=== PATIENT | female | born 1955 | race Caucasian/White ===

== ENCOUNTER → 2017-12-05 | Outpatient (CLI) | payer OTHER ==
[~2017-12-05] MED LIST: ACYC5TO15G; ASPI81CH PO; ASPI81EC PO; ATOR40TA PO; Adipex-P37.5 MG PO; CELE200; CITA20 PO; DULO60 PO; ESTMET; FISH1000 PO; FLUO10; GABA300 PO; GABA600 PO; HYDACE10B PO; HYDACE5; HYDACE5 PO; HYDMOR2 PO; LEVOXYL PO; LEVSOD100 PO; LEVSOD88 PO; MORP15ER PO; MORP30ER PO; MULVITMINE PO; NICO14TP TOP; OMEP10ER; OMEP20ER PO; OXYC20ER; SIMV5 PO; VARE1 PO
== END | disposition home or self-care (01) ==
LOC: LAB EV 17:00 → LAB SHORT 17:00
DX: G89.4 Chronic pain syndrome (principal); Z79.899 Other long term (current) drug therapy
CPT/HCPCS: G0480

== ENCOUNTER 2019-03-24 07:35 | Day surgery (SDC) | payer OTHER ==
[~2019-03-24] VITALS: Ht 175.3 cm; Wt 96.4 kg
[~2019-03-24 07:35] MED LIST changes: +EUTHYROX88 MCG PO; +Norco 10-325 T1 EACH PO; +Omeprazole20 M1 PO
--- NOTE | 2019-03-24 08:06 | NUR ---
History, Chart, Medications and Allergies reviewed before start of procedure. Patient confirms NPO status and agrees with scheduled surgery. Patient States Post-Procedure ride home has been arranged with , [place].
--- NOTE | 2019-03-24 08:35 | NUR ---
03/24/19 0835 Lorri Mendoza History, Chart, Medications and Allergies reviewed before start of procedure. PATIENT CONFIRMS NPO STATUS AND AGREES WITH SCHEDULED PROCEDURE. MONITOR INTACT WITH CONTINUOUS PULSE OXIMETRY AND INTERMITTENT BP. O2 VIA N/C INTACT THROUGHOUT SEDATION/PROCEDURE. 3-LEAD EKG REVIEWED WITH PHYSICIAN PRIOR TO START OF PROCEDURE. PT MODERATED SEDATION DUE TO SLEEP APNEA.
--- NOTE | 2019-03-24 09:47 | NUR ---
Discharge instructions reviewed with patient. Patient verbalizes understanding. Copy given to patient to take home. Patient up to Ambulate independently. Gait steady. Discharged via wheelchair to private car for ride home.
== END 2019-03-24 22:41 | disposition home or self-care (01) ==
LOC: ORSCMMR 07:35 → ORD 09:00 → ORSCMMR 09:00
PROVIDERS: Internal Medicine Gastroenterology
PROC: 0DB68ZX Excision of Stomach, Via Natural or Artificial Opening Endoscopic, Diagnostic (ICD-10-PCS; principal; 2019-03-24 09:00)
PROC: 0DB48ZX Excision of Esophagogastric Junction, Via Natural or Artificial Opening Endoscopic, Diagnostic (ICD-10-PCS; principal; 2019-03-24 09:00)
PROC: 0DB98ZX Excision of Duodenum, Via Natural or Artificial Opening Endoscopic, Diagnostic (ICD-10-PCS; principal; 2019-03-24 09:00)
DX: K21.9 Gastro-esophageal reflux disease without esophagitis (principal); L85.9 Epidermal thickening, unspecified; K92.1 Melena; R11.0 Nausea; K30 Functional dyspepsia; E03.9 Hypothyroidism, unspecified; M79.7 Fibromyalgia; E78.00 Pure hypercholesterolemia, unspecified; G47.30 Sleep apnea, unspecified; F17.210 Nicotine dependence, cigarettes, uncomplicated; Z79.899 Other long term (current) drug therapy
CPT/HCPCS: 88305; 88312; 88342; J2250; J3010; J7120

== ENCOUNTER 2021-12-27 23:11 | Emergency (ER) | payer OTHER ==
[~2021-12-27] VITALS: Ht 175.3 cm; Wt 65.8 kg
[2021-12-28] MEDS ORDERED: Prednisone20 MG PO (00:23)
[2021-12-28 00:29] LABS: BASOPHILS ABSOLUTE AUTO 0.01 K/mm3 (0.00-0.23); BASOPHILS PERCENT AUTO 0 % (0-2); EOSINOPHILS ABSOLUTE AUTO 0.16 K/mm3 (0.00-0.68); EOSINOPHILS PERCENT AUTO 3 % (0-6); Hematocrit 39.7 % (33.0-51.0); Hemoglobin 13.5 g/dL (11.5-16.0); IMMATURE GRAN ABSOLUTE AUTO 0.02 K/mm3 (0.00-0.10); IMMATURE GRAN PERCENT AUTO 0 % (0-1); LYMPHOCYTES ABSOLUTE AUTO 2.93 K/mm3 (0.84-5.20); LYMPHOCYTES PERCENT AUTO 46 % (21-46); MONOCYTES ABSOLUTE AUTO 0.52 K/mm3 (0.16-1.47); MONOCYTES PERCENT AUTO 8 % (4-13); Mean Corpuscular HGB 31.7 pg (26.0-34.0); Mean Corpuscular Volume 93 fL (80-100); Mean Platelet Volume 10.4 fL (9.1-12.4); NEUTROPHILS PERCENT AUTO 43 % (41-73); Platelet Count 180 K/mm3 (150-400); RDW Coefficient Variation 13.8 % (11.7-14.2); RDW Standard Deviation 47.9 fL (35.1-46.3); Red Blood Cell Count 4.26 M/mm3 (3.80-5.20); White Blood Cell Count 6.34 K/mm3 (4.00-11.30)
[2021-12-28 02:36] LABS: Bun/Creatinine Ratio 16.2 (12.0-20.0); Calcium, Blood 8.7 mg/dL (8.5-10.1); Creatinine, Blood 0.74 mg/dL (0.40-1.00); Potassium, Blood 3.6 mmol/L (3.5-5.5)
== END 2021-12-28 01:50 | disposition home or self-care (01) ==
LOC: ER 23:11
PROVIDERS: Emergency Medicine
DX: M79.604 Pain in right leg (principal); J44.9 Chronic obstructive pulmonary disease, unspecified; K21.9 Gastro-esophageal reflux disease without esophagitis; E03.9 Hypothyroidism, unspecified; Z91.030 Bee allergy status
CPT/HCPCS: 36415; 80048; 82550; 85025; 96374; 96375; 99284-25; J1170; J2930

== ENCOUNTER 2022-03-30 08:35 | Day surgery (SDC) | payer OTHER ==
[~2022-03-30 08:35] MED LIST changes: +MORPHINE PO; +NORCO PO; +Prednisone20 MG PO
== END 2022-03-30 22:43 | disposition home or self-care (01) ==
LOC: ORSCMMR 08:35 → ORD 10:15 → ORSCMMR 10:15
DX: Z86.010 Personal history of colon polyps (principal); Z53.9 Procedure and treatment not carried out, unspecified reason

== ENCOUNTER 2022-08-11 10:39 | Emergency (ER) | payer OTHER ==
[~2022-08-11] VITALS: Ht 170.2 cm; Wt 68.0 kg
[2022-08-11 11:23] LABS: BASOPHILS ABSOLUTE AUTO 0.02 K/mm3 (0.00-0.23); BASOPHILS PERCENT AUTO 0 % (0-2); EOSINOPHILS ABSOLUTE AUTO 0.03 K/mm3 (0.00-0.68); EOSINOPHILS PERCENT AUTO 1 % (0-6); Hematocrit 40.6 % (33.0-51.0); Hemoglobin 14.4 g/dL (11.5-16.0); IMMATURE GRAN ABSOLUTE AUTO 0.01 K/mm3 (0.00-0.10); IMMATURE GRAN PERCENT AUTO 0 % (0-1); LYMPHOCYTES PERCENT AUTO 37 % (21-46); MONOCYTES ABSOLUTE AUTO 0.29 K/mm3 (0.16-1.47); MONOCYTES PERCENT AUTO 5 % (4-13); Mean Corpuscular HGB 32.1 pg (26.0-34.0); Mean Corpuscular HGB Conc 35.5 g/dL (31.5-36.5); Mean Corpuscular Volume 91 fL (80-100); Mean Platelet Volume 10.2 fL (9.1-12.4); NEUTROPHILS ABSOLUTE AUTO 3.39 K/mm3 (1.96-9.15); NEUTROPHILS PERCENT AUTO 57 % (41-73); Platelet Count 182 K/mm3 (150-400); RDW Coefficient Variation 13.4 % (11.7-14.2); RDW Standard Deviation 44.5 fL (35.1-46.3); Red Blood Cell Count 4.48 M/mm3 (3.80-5.20); White Blood Cell Count 5.94 K/mm3 (4.00-11.30)
[2022-08-11 11:42] LABS: Albumin, Blood 3.5 g/dL (3.4-5.0); Albumin/Globulin Ratio 1.2 (0.8-1.8); Bilirubin, Total 0.3 mg/dL (0.1-1.0); Bun/Creatinine Ratio 17.9 (12.0-20.0); Calcium, Blood 9.1 mg/dL (8.5-10.1); Creatinine, Blood 0.5 mg/dL (0.40-1.00); Potassium, Blood 3.7 mmol/L (3.5-5.5); Total Protein, Blood 6.5 g/dL (6.4-8.2)
[2022-08-11 12:59] LABS: Source, Urine Clean Catch
[2022-08-11 13:04] LABS: Appearance, Urine Clear (Clear); Bilirubin, Urine Neg (Neg); Blood, Urine Neg (Neg); Color, Urine Yellow (P-Yellow); Glucose Qualitative, Urine Neg (Neg); Ketones, Urine Neg (Neg); Leukocyte Esterase, Urine Neg (Neg); Nitrite, Urine Neg (Neg); Protein, Urine Neg (Neg); Urobilinogen, Urine NORM (Normal); pH, Urine 6.5 (5.0-8.0)
[2022-08-11] MEDS ORDERED: PROBIOTIC1 EA13 PO (13:39)
[2022-08-11] MEDS ORDERED: AMOCLA875 PO (13:39)
== END 2022-08-11 13:59 | disposition home or self-care (01) ==
LOC: ER 10:39
PROVIDERS: Emergency Medicine
DX: K52.9 Noninfective gastroenteritis and colitis, unspecified (principal); J44.9 Chronic obstructive pulmonary disease, unspecified; G47.33 Obstructive sleep apnea (adult) (pediatric); F17.210 Nicotine dependence, cigarettes, uncomplicated; Z91.038 Other insect allergy status; Z79.899 Other long term (current) drug therapy; Z79.82 Long term (current) use of aspirin
CPT/HCPCS: 36415; 71045; 74177; 80053; 81003; 83690; 84484; 85025; 93005; 93010; Q9967

== ENCOUNTER 2023-01-02 18:01 | Emergency (ER) | payer OTHER ==
[~2023-01-02] VITALS: Ht 175.3 cm; Wt 63.5 kg
[~2023-01-02 18:01] MED LIST changes: +AMOCLA875 PO; +PROBIOTIC1 EA13 PO
[2023-01-02 19:04] LABS: BASOPHILS ABSOLUTE AUTO 0.02 K/mm3 (0.00-0.23); BASOPHILS PERCENT AUTO 0 % (0-2); EOSINOPHILS ABSOLUTE AUTO 0.06 K/mm3 (0.00-0.68); EOSINOPHILS PERCENT AUTO 1 % (0-6); Hematocrit 42.6 % (33.0-51.0); Hemoglobin 14.6 g/dL (11.5-16.0); IMMATURE GRAN ABSOLUTE AUTO 0.01 K/mm3 (0.00-0.10); IMMATURE GRAN PERCENT AUTO 0 % (0-1); LYMPHOCYTES ABSOLUTE AUTO 3.41 K/mm3 (0.84-5.20); LYMPHOCYTES PERCENT AUTO 49 % (21-46); MONOCYTES ABSOLUTE AUTO 0.34 K/mm3 (0.16-1.47); MONOCYTES PERCENT AUTO 5 % (4-13); Mean Corpuscular HGB 31.8 pg (26.0-34.0); Mean Corpuscular HGB Conc 34.3 g/dL (31.5-36.5); Mean Corpuscular Volume 93 fL (80-100); Mean Platelet Volume 10.1 fL (9.1-12.4); NEUTROPHILS ABSOLUTE AUTO 3.18 K/mm3 (1.96-9.15); NEUTROPHILS PERCENT AUTO 45 % (41-73); Platelet Count 186 K/mm3 (150-400); RDW Coefficient Variation 13.2 % (11.7-14.2); RDW Standard Deviation 45.3 fL (35.1-46.3); Red Blood Cell Count 4.59 M/mm3 (3.80-5.20); White Blood Cell Count 7.02 K/mm3 (4.00-11.30)
[2023-01-02 19:26] LABS: Albumin, Blood 3.4 g/dL (3.4-5.0); Bilirubin, Total 0.3 mg/dL (0.1-1.0); Bun/Creatinine Ratio 20.3 (12.0-20.0); Calcium, Blood 9.2 mg/dL (8.5-10.1); Creatinine, Blood 0.69 mg/dL (0.40-1.00); Globulin, Blood 3.4 g/dL (2.2-4.0); Potassium, Blood 3.8 mmol/L (3.5-5.5); Total Protein, Blood 6.8 g/dL (6.4-8.2)
[2023-01-02 20:39] VITALS: BP 125/75
[2023-01-02] MEDS ORDERED: OMEP20ER PO (20:41)
[2023-01-02] MEDS ORDERED: EUTHYROX88 MC1 PO (20:42)
[2023-01-02] MEDS ORDERED: Hydroxychloroq200 MG PO (20:43)
[2023-01-02] MEDS ORDERED: DULOXETINE HCL60 M1 PO (20:43)
[2023-01-02] MEDS ORDERED: GABA300 PO (20:44)
== END 2023-01-02 22:27 | disposition home or self-care (01) ==
LOC: ER 18:01
PROVIDERS: Student in an Organized Health Care Education/Training Program
DX: G89.18 Other acute postprocedural pain (principal); M79.604 Pain in right leg; Z91.030 Bee allergy status; Z79.899 Other long term (current) drug therapy; Z79.82 Long term (current) use of aspirin; Z79.891 Long term (current) use of opiate analgesic; K21.9 Gastro-esophageal reflux disease without esophagitis; E78.00 Pure hypercholesterolemia, unspecified; J44.9 Chronic obstructive pulmonary disease, unspecified; G47.30 Sleep apnea, unspecified; F17.210 Nicotine dependence, cigarettes, uncomplicated
CPT/HCPCS: 80053; 85025; 93971; 99284-25; A9270

== ENCOUNTER 2024-03-25 12:14 | Observation (INO) | payer OTHER ==
[~2024-03-25] VITALS: Ht 172.7 cm; Wt 61.2 kg
[~2024-03-25 12:14] MED LIST changes: +DULOXETINE HCL60 M1 PO; +EUTHYROX88 MC1 PO; +Hydroxychloroq200 MG PO
[2024-03-25] MEDS ORDERED: HYDROCODONE-AC1 EAC7 PO (12:23)
[2024-03-25] MEDS ORDERED: MS Contin15 MG PO (12:23)
[2024-03-25 13:01] LABS: BASOPHILS ABSOLUTE AUTO 0.02 K/mm3 (0.00-0.23); BASOPHILS PERCENT AUTO 0 % (0-2); EOSINOPHILS ABSOLUTE AUTO 0.03 K/mm3 (0.00-0.68); EOSINOPHILS PERCENT AUTO 0 % (0-6); Hematocrit 39.4 % (33.0-51.0); Hemoglobin 13.5 g/dL (11.5-16.0); IMMATURE GRAN ABSOLUTE AUTO 0.03 K/mm3 (0.00-0.10); IMMATURE GRAN PERCENT AUTO 0 % (0-1); LYMPHOCYTES ABSOLUTE AUTO 1.32 K/mm3 (0.84-5.20); LYMPHOCYTES PERCENT AUTO 11 % (21-46); MONOCYTES PERCENT AUTO 6 % (4-13); Mean Corpuscular HGB 32.1 pg (26.0-34.0); Mean Corpuscular HGB Conc 34.3 g/dL (31.5-36.5); Mean Corpuscular Volume 94 fL (80-100); Mean Platelet Volume 10.2 fL (9.1-12.4); NEUTROPHILS ABSOLUTE AUTO 9.91 K/mm3 (1.96-9.15); NEUTROPHILS PERCENT AUTO 83 % (41-73); Platelet Count 167 K/mm3 (150-400); RDW Coefficient Variation 13.1 % (11.7-14.2); RDW Standard Deviation 45.5 fL (35.1-46.3); White Blood Cell Count 12.01 K/mm3 (4.00-11.30)
[2024-03-25 13:02] LABS: Bun/Creatinine Ratio 15.1 (12.0-20.0); Calcium, Blood 9.1 mg/dL (8.5-10.1); Creatinine, Blood 0.66 mg/dL (0.40-1.00); Potassium, Blood 3.7 mmol/L (3.5-5.5)
[2024-03-25] MEDS ORDERED: FentaNYL Citrate 50 MCG/ML 2 ML Injection IV ONE (13:45)
[2024-03-25] MEDS ORDERED: FLU VACC TS2024-25(6MOS UP)/PF 45 MCG/0.5 ML SYRINGE IM SCH (15:00)
[2024-03-25] MEDS ORDERED: Omeprazole 20 MG CapCR PO SCH (16:30)
[2024-03-25] MEDS ORDERED: HYDROcodone 10-APAP 325 TAB PO PRN ×2 (17:15→21:00)
[2024-03-25] MEDS ORDERED: Nicotine Polacrilex 2 MG Gum PO PRN (18:00)
[2024-03-25] MEDS ORDERED: Nicotine 21 MG PATCH TOP SCH (18:00)
[2024-03-25 18:40] VITALS: BP 110/69
[2024-03-25 19:57] VITALS: BP 109/55
--- NOTE | 2024-03-25 20:38 | NUR ---
SHIFT SUMMARY- PT ALERT AND ORIENTED, 1P SBA TO THE BSC IF NEEDED. PT IS ON TELE NSR AT 75 PER [employer]ERR[employer] WORKER VINICIO. BEDSIDE REPORT COMPLETED WITH NIGHT RN. PT ARRIVED AT THE TIME OF SHIFT CHANGE, ADMISSION ASSESSMENT NOT COMPLETED. BEDSIDE REPORT COMPLETED WITH NIGHT RN. TELE PLACED. PT IN BED, CALL LIGHT IN REACH NO S&S OF DISTRESS NOTED. PT HAS A STRESS TEST IN THE AM, SHE WAS MADE NO CAFFIENE UPON ARRIVAL. PT TO BE NPO WITH WATER PRIVILAGES AT MIDNIGHT FOR STRESS TEST IN THE AM. NIGHT RN AWARE. PT AWARE, NOTHING BUT WATER AFTER MIDNIGHT. PT DENIES ANY CP AT THIS TIME.
[2024-03-25] MEDS ORDERED: Gabapentin 300 MG Cap PO SCH (21:00)
[2024-03-25] MEDS ORDERED: Morphine Sulfate 15 MG TABCR PO ONE (21:00)
[2024-03-26 02:12] VITALS: BP 105/67
[2024-03-26 05:50] LABS: BASOPHILS ABSOLUTE AUTO 0.02 K/mm3 (0.00-0.23); BASOPHILS PERCENT AUTO 0 % (0-2); EOSINOPHILS ABSOLUTE AUTO 0.02 K/mm3 (0.00-0.68); EOSINOPHILS PERCENT AUTO 0 % (0-6); Hematocrit 37.7 % (33.0-51.0); Hemoglobin 12.9 g/dL (11.5-16.0); IMMATURE GRAN ABSOLUTE AUTO 0.03 K/mm3 (0.00-0.10); IMMATURE GRAN PERCENT AUTO 0 % (0-1); LYMPHOCYTES ABSOLUTE AUTO 1.85 K/mm3 (0.84-5.20); LYMPHOCYTES PERCENT AUTO 19 % (21-46); MONOCYTES ABSOLUTE AUTO 0.79 K/mm3 (0.16-1.47); MONOCYTES PERCENT AUTO 8 % (4-13); Mean Corpuscular HGB 31.9 pg (26.0-34.0); Mean Corpuscular HGB Conc 34.2 g/dL (31.5-36.5); Mean Corpuscular Volume 93 fL (80-100); Mean Platelet Volume 10.6 fL (9.1-12.4); NEUTROPHILS ABSOLUTE AUTO 7.06 K/mm3 (1.96-9.15); NEUTROPHILS PERCENT AUTO 72 % (41-73); Platelet Count 155 K/mm3 (150-400); RDW Coefficient Variation 13.3 % (11.7-14.2); RDW Standard Deviation 45.4 fL (35.1-46.3); Red Blood Cell Count 4.04 M/mm3 (3.80-5.20); White Blood Cell Count 9.77 K/mm3 (4.00-11.30)
[2024-03-26] MEDS ORDERED: Levothyroxine Sodium 0.088 MG Tab PO SCH (06:00)
[2024-03-26 06:07] LABS: Bun/Creatinine Ratio 16.8 (12.0-20.0); Calcium, Blood 8.5 mg/dL (8.5-10.1); Creatinine, Blood 0.65 mg/dL (0.40-1.00); Potassium, Blood 3.9 mmol/L (3.5-5.5)
[2024-03-26 07:14] VITALS: BP 105/63
--- NOTE | 2024-03-26 07:55 | NUR ---
SHIFT SUMMARY PT IS A&OX4, PLEASANT AND APPRECIATIVE OF CARES. VSS ON RA. PER TELEMETRY PT IS IN SR @ 70. C/O CHEST PAIN, AND GENERALIZED PAIN, MEDICATED WITH PRN 10 MG PO NORCO. PT HAS HAD WATER ONLY AFTER MN FOR A STRESS TEST TODAY. SBA TO BR. BED IN LOWEST POSITION, CALL LIGHT WITHIN REACH. BED ALARM SET FOR PT'S SAFETY.
[2024-03-26] MEDS ORDERED: Aspirin 81 MG Chew PO SCH (09:00)
[2024-03-26] MEDS ORDERED: Morphine Sulfate 15 MG TABCR PO SCH (09:00)
[2024-03-26] MEDS ORDERED: Hydroxychloroquine Sulfate 200 MG Tab PO SCH (09:00)
[2024-03-26] MEDS ORDERED: Enoxaparin 40 MG/0.4 ML SYR SC SCH (09:00)
[2024-03-26] MEDS ORDERED: DULoxetine HCL 60 MG Capsule DR PO SCH (09:00)
[2024-03-26] MEDS ORDERED: Peg 400/Hypromellose/Glycerin 15 DROP/ML BTL BOTHEYES PRN (12:00)
[2024-03-26] MEDS ORDERED: Caffeine Citrated 60 MG/3 ML Vial ONE (13:33)
[2024-03-26] MEDS ORDERED: Regadenoson 0.4 MG/5 ML SYRINGE ONE (13:33)
[2024-03-26 16:16] VITALS: BP 110/74
--- NOTE | 2024-03-26 16:29 | NUR ---
PT IS A/OX4, PLEASANT AND COOPERATIVE, THE PT IS UP WITH MINIMAL ASSIST DUE TO REPORTED DIZZINESS AT TIMES. THE PT CONTINUED TO REPORT MILD C/P T/O THE DAY THE PT WAS MEDICATED FOR PAIN X2 TODAY ONE SCHEDULE AND ONE PRN. THE PT COMPLETED A 1 DAY SRESS TEST TODAY, RESULTS PENDING AT THIS TIME. PT HAS A VISITOR AT THE BEDSIDE. CALL LIGHT IN REACH. THE PT APPEARS TO BE BREATHING EASILY ON RA AT THIS TIME. DENIED N/V AND SOB TODAY
[2024-03-26] MEDS ORDERED: HYDROXYCHLOROQ400 MG PO (18:25)
[2024-03-26] MEDS ORDERED: GABA300 PO (18:25)
[2024-03-26] MEDS ORDERED: NICO21TP TOP (18:26)
--- NOTE | 2024-03-26 19:18 | NUR ---
discharge instructions completed and discussed with pt expressing understanding. scripts faxed to [facility]. to curb via w/c with daughter trasnporting.
== END 2024-03-26 19:10 | disposition home or self-care (01) ==
LOC: ER 12:14 → ERHOLD 12:15 → EDBEDREQ 15:22 → MEDS 18:33
PROVIDERS: Emergency Medicine; ADMIT Internal Medicine
DX: I25.118 Atherosclerotic heart disease of native coronary artery with other forms of angina pectoris (principal); J45.909 Unspecified asthma, uncomplicated; I10 Essential (primary) hypertension; G89.29 Other chronic pain; K21.9 Gastro-esophageal reflux disease without esophagitis; E03.9 Hypothyroidism, unspecified; E78.5 Hyperlipidemia, unspecified; G47.33 Obstructive sleep apnea (adult) (pediatric); I73.9 Peripheral vascular disease, unspecified; G62.9 Polyneuropathy, unspecified; E78.00 Pure hypercholesterolemia, unspecified; G47.30 Sleep apnea, unspecified; F17.210 Nicotine dependence, cigarettes, uncomplicated; Z91.038 Other insect allergy status; Z79.899 Other long term (current) drug therapy
CPT/HCPCS: 36415; 71100; 78452; 80048; 83735; 83880; 84484; 85025; 93005; 93010; 93017; 96372; 96374; 99285-25; A9270; A9500; G0378; J0706; J1650; J2785; J3010

== ENCOUNTER 2024-10-20 10:52 | Emergency (ER) | payer OTHER ==
[~2024-10-20] VITALS: Ht 175.3 cm; Wt 59.9 kg
[~2024-10-20 10:52] MED LIST changes: +HYDROCODONE-AC1 EAC7 PO; +HYDROXYCHLOROQ400 MG PO; +MS Contin15 MG PO; +NICO21TP TOP
[2024-10-20 11:27] LABS: BASOPHILS ABSOLUTE AUTO 0.01 K/mm3 (0.00-0.23); BASOPHILS PERCENT AUTO 0 % (0-2); EOSINOPHILS ABSOLUTE AUTO 0.03 K/mm3 (0.00-0.68); EOSINOPHILS PERCENT AUTO 1 % (0-6); Hematocrit 40.4 % (33.0-51.0); Hemoglobin 13.5 g/dL (11.5-16.0); IMMATURE GRAN ABSOLUTE AUTO 0.01 K/mm3 (0.00-0.10); IMMATURE GRAN PERCENT AUTO 0 % (0-1); LYMPHOCYTES ABSOLUTE AUTO 1.56 K/mm3 (0.84-5.20); LYMPHOCYTES PERCENT AUTO 38 % (21-46); MONOCYTES ABSOLUTE AUTO 0.27 K/mm3 (0.16-1.47); MONOCYTES PERCENT AUTO 7 % (4-13); Mean Corpuscular HGB 32.2 pg (26.0-34.0); Mean Corpuscular HGB Conc 33.4 g/dL (31.5-36.5); Mean Corpuscular Volume 96 fL (80-100); Mean Platelet Volume 10.4 fL (9.1-12.4); NEUTROPHILS ABSOLUTE AUTO 2.26 K/mm3 (1.96-9.15); NEUTROPHILS PERCENT AUTO 55 % (41-73); Platelet Count 152 K/mm3 (150-400); RDW Coefficient Variation 13.9 % (11.7-14.2); RDW Standard Deviation 49.3 fL (35.1-46.3); Red Blood Cell Count 4.19 M/mm3 (3.80-5.20); White Blood Cell Count 4.14 K/mm3 (4.00-11.30)
[2024-10-20 11:48] LABS: Albumin, Blood 3.3 g/dL (3.4-5.0); Albumin/Globulin Ratio 0.9 (0.8-1.8); Bilirubin, Total 0.3 mg/dL (0.1-1.0); Bun/Creatinine Ratio 15.4 (12.0-20.0); Calcium, Blood 8.8 mg/dL (8.5-10.1); Creatinine, Blood 0.65 mg/dL (0.40-1.00); Globulin, Blood 3.5 g/dL (2.2-4.0); Potassium, Blood 3.8 mmol/L (3.5-5.5); Total Protein, Blood 6.8 g/dL (6.4-8.2)
[2024-10-20] MEDS ORDERED: Mag Hydrox/AL Hydrox/Simeth 30 ML UDC PO ONE (16:55)
[2024-10-20] MEDS ORDERED: Lidocaine 2% Viscous Soln 15 ML UDC PO ONE (16:55)
[2024-10-20] MEDS ORDERED: Famotidine 10 MG/ML 2ML Vial IV ONE (16:55)
[2024-10-20] MEDS ORDERED: Ketorolac Tromethamine 15mg Vial IV ONE (18:25)
[2024-10-20 20:00] VITALS: BP 121/71
== END 2024-10-20 20:30 | disposition home or self-care (01) ==
LOC: ER 10:52
PROVIDERS: Student in an Organized Health Care Education/Training Program
DX: R10.13 Epigastric pain (principal); R07.81 Pleurodynia; K21.9 Gastro-esophageal reflux disease without esophagitis; F17.210 Nicotine dependence, cigarettes, uncomplicated; Z91.030 Bee allergy status; Z79.899 Other long term (current) drug therapy; Z79.890 Hormone replacement therapy; Z79.82 Long term (current) use of aspirin
CPT/HCPCS: 71046; 74177; 80053; 83690; 84484; 85025; 93005; 93010; 96374; 96375; 99285-25; A9270; J1885; Q9967